=== PATIENT | female | born 1995 | race Caucasian/White ===

== ENCOUNTER 2018-06-09 22:08 | Emergency (ER) | payer MEDICAID, OTHER ==
[~2018-06-09] VITALS: Wt 73.6 kg
[2018-06-09 22:23] VITALS: BP 142/86; PULSE 68; RESP 20
--- NOTE | 2018-06-10 00:42 | ERD ---
ER Documentation Chief Complaint Chief Complaint L sided AP, pelvic pain x1d. + dysuria. HPI Patient is a 23-year-old female presents the ER for concerns of dysuria and left-sided pelvic pain times 1 day. She states that she has burning pain with urination. She also admits to frequency and urgency. She denies any hematuria. Patient states the pain originates in her left lower quadrant treatment and radiates up into her left upper quadrant. Patient denies any fevers or chills. Patient has no associated nausea, vomiting, rectal bleeding, or diarrhea. Patient denies any vaginal bleeding or vaginal discharge. Patient states her last menstrual period was on 04/22/18. ROS All systems reviewed and are negative except as per history of present illness. Medications Home Meds Active Scripts Nitrofurantoin Monohyd Macrocr* (Macrobid*) 100 Mg Capsr, 100 MG PO BID for 5 Days, CAP Prov:DEBBIE GUEVARA PA-C 06/10/18 Ibuprofen* (Motrin*) 600 Mg Tab, 600 MG PO Q6, #30 TAB Prov:DEBBIE GUEVARA PA-C 06/10/18 Allergies Allergies: Coded Allergies: Penicillins (Verified Allergy, Unknown, 06/09/18) PMhx/Soc Medical and Surgical Hx: pt denies Medical Hx, pt denies Surgical Hx Hx Alcohol Use: No Hx Substance Use: No Hx Tobacco Use: No Smoking Status: Never smoker FmHx Family History: No diabetes Physical Exam Vitals Vital Signs Date Temp Pulse Resp B/P (MAP) Pulse Ox O2 O2 Flow FiO2 Time Delivery Rate 06/09/18 98.8 68 20 142/86 95 22:23 (104) Physical Exam GENERAL: Well-developed, well-nourished female. Appears in no acute distress. HEAD: Normocephalic, atraumatic. EYES: Pupils are equally reactive bilaterally. EOMs grossly intact. No conjunctival erythema. ENT: Moist mucous membranes. No uvula deviation. No kissing tonsils. NECK: Supple. No meningismus. Normal range of motion of the neck. LUNG: Clear to auscultation bilaterally. No rhonchi, wheezing, rales or coarse breath sounds. HEART: Regular rate and rhythm. No murmurs, rubs or gallops. ABDOMEN: Soft nondistended. Minimally tender to palpation over the suprapubic region and left lower quadrant.. Positive bowel sounds in all four quadrants. No rebound tenderness, no guarding. (-) McBurney's point tenderness. No CVA tenderness. EXTREMITIES: Equal pulses bilaterally. No peripheral clubbing, cyanosis or edema. No unilateral leg swelling. NEUROLOGIC: Alert and oriented. Moving all four extremities without any difficulty. Normal speech. Steady gait. SKIN: Normal color. Warm and dry. No rashes or lesions. Results 24 hrs Laboratory Tests Test 06/09/18 23:20 06/09/18 23:22 Bedside Urine pH (LAB) 6.0 Bedside Urine Protein (LAB) Negative Bedside Urine Glucose (UA) Negative Bedside Urine Ketones (LAB) Negative Bedside Urine Blood Negative Bedside Urine Nitrite (LAB) Negative Bedside Urine Leukocyte Esterase (L Trace POC Beta HCG, Qualitative NEGATIVE Procedures/MDM ED COURSE: The patient was stable throughout ED course. I kept the patient and/or family informed of laboratory and diagnostic imaging results throughout the ED course. DIAGNOSTIC IMAGING: Read by radiologist. Patient: GIGI NOYOLA : 1995 Age: 23 Sex: F MR #: [id number] DOS: 06/09/18 2337 Ordering MD: DEBBIE GUEVARA PA-C Location: [facility] Room/Bed: PROCEDURE: ULTRASOUND EVALUATION OF THE FEMALE PELVIS CLINICAL INDICATION: 23 years of age, female. Left pelvic pain and flank pain for 2 days. TECHNIQUE: Real-time sonographic images of the pelvis were obtained transabdominally utilizing stephenson scale, color, and Doppler imaging. COMPARISON: None available. FINDINGS: LMP: April 22, 2018 Uterus: Appearance: Normal. Position: Anteverted Size: 7.9 x 4.4 x 5.4 cm. (Volume 98 mL) Endometrial stripe: 0.8 cm. Not well visualized due to transabdominal scanning and an under distended bladder. Right ovary and adnexa: Size: 3 x 1.9 x 2.9 cm. (Volume 8.8 mL) Appearance: Normal morphology. No masses. Arterial flow is present. Left ovary and adnexa: Size: 2.9 x 1.8 x 3.7 cm. (Volume 10.2 mL) Appearance: Normal morphology. No masses. Arterial flow is present. Free fluid: None. IMPRESSION: Unremarkable transabdominal ultrasound of the female pelvis. Cause for pelvic pain is not evident. Please note a transvaginal scan was not performed. RPTAT: HCTS Physician Yoana Date Time Electronically viewed and signed by Rahel Arriola Physician on 06/10/2018 00:46 CS/ CC: DEBBIE GUEVARA PA-C [id number] PROCEDURES: None. MEDICAL DECISION MAKING: This is a 23-year-old female presents the ER for concern of left-sided pelvic pain along with UTI symptoms times 1 day.. Vital signs were reviewed. Patient was afebrile. Urine test was negative. UA did show trace leukocyte esterase. Given that patient does report UTI-like symptoms, patient will be tr eated with Macrobid for concerns of UTI. Pelvic ultrasound was unremarkable. See formal report above. Patient is advised to follow-up with [facility] for further management of her symptoms. At this time patient's presentation is consistent with UTI and pelvic pain. Was suspicion for ectopic , ovarian torsion, PID, tubo-ovarian abscess, fibroids, endometriosis, vulvovaginitis, nephrolithiasis, pyelonephritis, UTI, appendicitis, diverticulitis, bowel obstruction, perirectal abscess. PRESCRIPTIONS: Macrobid, Ibuprofen DISCHARGE: At this time, patient is stable for discharge and outpatient management. I have instructed the patient to follow-up with his/her primary care physician in 1-2 days. I have discussed with the patient the possibility of needing to see a specialist for further workup and diagnostic studies if the pain persists. I have instructed the patient to promptly return to the ER at any time for any new or worsening symptoms including increased pain, nausea, vomiting, vaginal bleeding, weakness or fever. The patient and/or family expressed understanding of and agreement with this plan. All questions were answered. Home care instructions were provided. Disclaimer: Inadvertent spelling and grammatical errors are likely due to EHR/dictation software use and do not reflect on the overall quality of patient care. Also, please note that the electronic time recorded on this note does not necessarily reflect the actual time of the patient encounter Departure Diagnosis: Primary Impression: UTI (urinary tract infection) Urinary tract infection type: site unspecified Hematuria presence: without hematuria Qualified Codes: N39.0 - Urinary tract infection, site not specified Additional Impression: Pelvic pain Condition: Fair Patient Instructions: Understanding Urinary Tract Infections (UTIs) Referrals: [facility] YOU HAVE RECEIVED A MEDICAL SCREENING EXAM AND THE RESULTS INDICATE THAT YOU DO NOT HAVE A CONDITION THAT REQUIRES URGENT TREATMENT IN THE EMERGENCY DEPARTMENT. FURTHER EVALUATION AND TREATMENT OF YOUR CONDITION CAN WAIT UNTIL YOU ARE SEEN IN YOUR DOCTORS OFFICE WITHIN THE NEXT 1-2 DAYS. IT IS YOUR RESPONSIBILITY TO MAKE AN APPOINTMENT FOR FOLOW-UP CARE. IF YOU HAVE A PRIMARY DOCTOR --you should call your primary doctor and schedule an appointment IF YOU DO NOT HAVE A PRIMARY DOCTOR YOU CAN CALL OUR PHYSICIAN REFERRAL HOTLINE AT IF YOU CAN NOT AFFORD TO SEE A PHYSICIAN YOU CAN CHOSE FROM THE FOLLOWING [facility] [address] [facility]. [facility] [address] [facility]. [facility] [address] [facility] [facility] [address] [facility]. [facility] [address] [facility]. [facility] [address] [place]. [facility] YOU HAVE RECEIVED A MEDICAL SCREENING EXAM AND THE RESULTS INDICATE THAT YOU DO NOT HAVE A CONDITION THAT REQUIRES URGENT TREATMENT IN THE EMERGENCY DEPARTMENT. FURTHER EVALUATION AND TREATMENT OF YOUR CONDITION CAN WAIT UNTIL YOU ARE SEEN IN YOUR DOCTORS OFFICE WITHIN THE NEXT 1-2 DAYS. IT IS YOUR RESPONSIBILITY TO MAKE AN APPOINTMENT FOR FOLOW-UP CARE. IF YOU HAVE A PRIMARY DOCTOR --you should call your primary doctor and schedule and appointment IF YOU DO NOT HAVE A PRIMARY DOCTOR YOU CAN CALL OUR PHYSICIAN REFERRAL HOTLINE AT . IF YOU CAN NOT AFFORD TO SEE A PHYSICIAN YOU CAN CHOSE FROM THE FOLLOWING [facility] INSTITUTIONS: [facility] [address] [place] [address] [facility] [address] [place] [address] LAC + [facility] [address] [place] [address] [facility]CIALT[facility] [place] [address] [facility] [address] [place] [address] OFFICE FAX , [facility] [address] [place] [address] [address] APEZ, [place] [address] [place] [address] [address] CERDA, [facility] [address] [facility], [address], [facility] [address] [address]CMANUS, [facility] [address] [place] [address] [facility] [address] [place] [address] [address] [facility] [address] [address] FLORES, JUL[address] [address] [address] HOUGH, [place] [address] [facility]. [address], [facility] [address] [address] LUNA, [place] [address] [place], [place] [id number] Additional Instructions: Llame al doctor MAANA y percy lolita NATHANAEL PARA DENTRO DE 1-2 JI.Dgale a la secretaria que nosotros le instruimos hacer esta nathanael.Avise o llame si ledesma condicin se empeora antes de la nathanael. Regresa aqui si peor o no mejor. DEBBIE GUEVARA PA-C Jun 10, 2018 00:42
[2018-06-10] MEDS ORDERED: IBUP-1542 PO (01:08)
[2018-06-10] MEDS ORDERED: NITR-58 PO (01:08)
== END 2018-06-10 01:44 | disposition home or self-care (01) ==
LOC: FTE 22:08
DX: N39.0 Urinary tract infection, site not specified (principal); R10.2 Pelvic and perineal pain
CPT/HCPCS: 76856; 81003; 81025; Z7502